=== PATIENT | male | born 1985 | race Caucasian/White ===

== ENCOUNTER 2018-04-04 22:00 | Emergency (ER) | payer MEDICAID ==
[2018-04-04] MEDS ORDERED: Aspirin 81 MG Tab.Chew PO ONE (22:26)
--- NOTE | 2018-04-04 22:28 | EDM.PDOC ---
ED HPI GENERAL MEDICAL PROBLEM - General Chief Complaint: Chest Pain Stated Complaint: CHEST PAIN Time Seen by Provider: 04/04/18 22:15 Source of Information: Reports: Patient, Alf Records - History of Present Illness INITIAL COMMENTS - FREE TEXT/NARRATIVE: 32-year-old male with onset of left anterior chest pain about 3 hours ago. He describes this as an ache without radiation that has not gone away. He is had occasional palpitations in the past where he feels some irregularity with his heart rate. He also has felt some of that this evening at the prolonged achiness is different from past experience. Not feel short of breath. He has not been coughing or ill with fever chills. He has history of borderline hypertension in the past, is not on medication for hypertension. He states he also was borderline diabetic. Does suffer from quite massive obesity. Left Chest Pain Score (Numeric/FACES): 5 - Related Data Allergies Allergy/AdvReac Type Severity Reaction Status Date / Time No Known Allergies Allergy Verified 04/04/18 22:16 Home Meds: Home Meds Ziprasidone HCl [Geodon] 04/04/18 [History] lamoTRIgine [Lamictal] 04/04/18 [History] metFORMIN HCl [Metformin HCl ER] 750 mg PO 04/04/18 [History] ED ROS GENERAL - Review of Systems Review Of Systems: See Below Constitutional: Denies: Fever, Chills, Diaphoresis HEENT: Reports: No Symptoms Respiratory: Denies: Shortness of Breath, Pleuritic Chest Pain, Cough Cardiovascular: Reports: Chest Pain, Dyspnea on Exertion GI/Abdominal: Denies: Abdominal Pain, Nausea, Vomiting Musculoskeletal: Denies: Neck Pain, Shoulder Pain, Arm Pain, Back Pain Skin: Reports: No Symptoms Neurological: Denies: Numbness, Tingling ED EXAM, GENERAL - Physical Exam Exam: See Below General Appearance: Alert, No Apparent Distress Eye Exam: Bilateral Eye: PERRL Throat/Mouth: Normal Inspection Head: Atraumatic Neck: Supple, Full Range of Motion Respiratory/Chest: No Respiratory Distress, Lungs Clear, Normal Breath Sounds Cardiovascular: Regular Rate, Rhythm GI/Abdominal: Soft, Non-Tender Back Exam: No: CVA Tenderness (L), CVA Tenderness (R) Extremities: Normal Inspection, Normal Range of Motion. No: Leg Pain Neurological: Alert, Oriented, No Motor/Sensory Deficits Skin Exam: Warm, Dry, Normal Color EKG INTERPRETATION EKG Date: 04/04/18 Rhythm: NSR [place]: Normal P-Wave: Present QRS: Other (Several PVCs noted) ST-T: Normal Course - Vital Signs Last Recorded V/S: Last Vital Signs Temp 98.1 F 04/04/18 22:11 Pulse 92 04/04/18 22:11 Resp 20 04/04/18 22:11 BP 163/91 H 04/04/18 22:11 Pulse Ox 97 04/04/18 22:11 - Orders/Labs/Meds Orders: Active Orders 24 hr Category Date Time Status EKG 12 Lead [EKG Documentation Completion] [RC] STAT Care 04/04/18 22:25 Active Chest 1V Frontal [CR] Stat Exams 04/04/18 22:25 Taken Labs: Laboratory Tests 04/04/18 04/04/18 Range/Units 22:25 22:25 WBC 14.12 H (4.23-9.07) K/mm3 RBC 4.90 (4.63-6.08) M/mm3 Hgb 14.0 (13.7-17.5) gm/L Hct 41.7 (40.1-51.0) % MCV 85.1 (79.0-92.2) fl MCH 28.6 (25.7-32.2) pg MCHC 33.6 (32.2-35.5) g/dl RDW Std Deviation 42.4 (35.1-43.9) fL Plt Count 406 H (163-337) K/mm3 MPV 9.2 L (9.4-12.3) fl Neut % (Auto) 60.4 (34.0-67.9) % Lymph % (Auto) 26.5 (21.8-53.1) % [place] % (Auto) 8.4 (5.3-12.2) % Eos % (Auto) 4.0 (0.8-7.0) Baso % (Auto) 0.1 (0.1-1.2) % Neut # (Auto) 8.52 H (1.78-5.38) K/mm3 Lymph # (Auto) 3.74 H (1.32-3.57) K/mm3 [place] # (Auto) 1.19 H (0.30-0.82) K/mm3 Eos # (Auto) 0.57 H (0.04-0.54) K/mm3 Baso # (Auto) 0.02 (0.01-0.08) K/mm3 Sodium 138 (136-145) mEq/L Potassium 3.9 (3.5-5.1) mEq/L Chloride 104 (98-107) mEq/L Carbon Dioxide 30 (21-32) mEq/L Anion Gap 7.9 (5-15) BUN 14 (7-18) mg/dL Creatinine 1.3 (0.7-1.3) mg/dL Est Cr Clr Drug Dosing 99.23 mL/min Estimated GFR (MDRD) > 60 (>60) mL/min BUN/Creatinine Ratio 10.8 L (14-18) Glucose 96 (74-106) mg/dL Calcium 9.0 (8.5-10.1) mg/dL Total Bilirubin 0.2 (0.2-1.0) mg/dL AST 24 (15-37) U/L ALT 53 (16-63) U/L Alkaline Phosphatase 103 (46-116) U/L Troponin I < 0.017 (0.00-0.056) ng/mL Total Protein 7.5 (6.4-8.2) g/dl Albumin 3.4 (3.4-5.0) g/dl Globulin 4.1 gm/dL Albumin/Globulin Ratio 0.8 L (1-2) Meds: Medications Discontinued Medications Generic Name Dose Route Start Last Admin Trade Name Freq PRN Reason Stop Dose Admin Aspirin 324 mg 04/04/18 22:26 04/04/18 22:58 Aspirin PO 04/04/18 22:27 324 mg ONETIME ONE Administration - Re-Assessments/Exams Free Text/Narrative Re-Assessment/Exam: 04/05/18 03:51 Troponin, other labs relatively normal chest x-ray looked fine, patient resting comfortably at time of reexam, discharge instructions as documented. Departure - Departure Time of Disposition: 00:27 Disposition: Home, Self-Care 01 Condition: Fair Clinical Impression: Atypical chest pain Instructions: Nonspecific Chest Pain Referrals: Rachel Messer NP [Primary Care Provider] - Forms: ED Department Discharge Additional Instructions: Try eat a good healthy diet, try begin a slow gradual exercise program as best you can, the [facility] has some good dietary guidelines and recommendations available for review, see her regular provider in the next 1-2 weeks for complete physical, asked to have your cholesterol checked at that time. Return to ED as needed if symptoms worsening in any way. - My Orders Last 24 Hours: My Active Orders 04/04/18 22:25 EKG 12 Lead [EKG Documentation Completion] [RC] STAT Chest 1V Frontal [CR] Stat - Assessment/Plan Last 24 Hours: My Active Orders 04/04/18 22:25 EKG 12 Lead [EKG Documentation Completion] [RC] STAT Chest 1V Frontal [CR] Stat
--- NOTE | 2018-04-06 11:43 | CR ---
Chest: Frontal view of the chest was obtained. Comparison: No prior chest x-ray. Size and mediastinum are normal. Lungs are clear. Bony structures are grossly intact. Impression: 1. Nothing acute is seen on frontal chest x-ray. Diagnostic code #1
== END 2018-04-05 00:45 | disposition home or self-care (01) ==
LOC: JD.ED 22:00
DX: R07.89 Other chest pain (principal); Z79.899 Other long term (current) drug therapy; Z79.84 Long term (current) use of oral hypoglycemic drugs
CPT/HCPCS: 36415; 71045; 80053; 84484; 85025; 93005; 99285; A9270; 93010; 99284-25

== ENCOUNTER 2019-06-16 14:16 | Emergency (ER) | payer MEDICAID ==
[2019-06-16] MEDS ORDERED: Lidocaine 1% with EPINEPHrine 1:100,000 20 ML MDV INJECT ONE (15:40)
--- NOTE | 2019-06-16 15:47 | EDM.PDOC ---
ED HPI GENERAL MEDICAL PROBLEM - General Chief Complaint: Laceration Stated Complaint: KNEE LAC Time Seen by Provider: 06/16/19 15:33 Source of Information: Reports: Patient History Limitations: Reports: No Limitations - History of Present Illness INITIAL COMMENTS - FREE TEXT/NARRATIVE: The patient presents with a left knee laceration. The patient was going into his house and he was stepping up onto his deck and slipped and his left leg went below him and he fell and landed on his left knee. He has a 2.5cm laceration to the left knee. He also has pain and swelling. He could walk on it but it does not feel right. His tetanus is up to date. Onset: Sudden Duration: Hour(s): Location: Reports: Lower Extremity, Left (knee) Quality: Reports: Sharp Severity: Moderate Improves with: Reports: Immobilization Worsens with: Reports: Movement Context: Reports: Trauma (Slipped and fell on he ice) Associated Symptoms: Reports: No Other Symptoms Left Knee Pain Score (Numeric/FACES): 5 - Related Data Allergies Allergy/AdvReac Type Severity Reaction Status Date / Time No Known Allergies Allergy Verified 03/03/19 02:48 Home Meds: Home Meds lamoTRIgine [Lamictal] 1 tab PO DAILY 04/04/18 [History] metFORMIN HCl [Metformin HCl ER] 500 mg PO DAILY 04/04/18 [History] traZODone HCl [Trazodone HCl] 100 mg PO BEDTIME 03/03/19 [History] Past Medical History HEENT History: Reports: Impaired Vision Cardiovascular History: Reports: High Cholesterol, Hypertension Respiratory History: Reports: Asthma Gastrointestinal History: Reports: None Genitourinary History: Reports: None Musculoskeletal History: Reports: None Neurological History: Reports: Concussion Psychiatric History: Reports: Bipolar, Other (See Below) (Insomnia) Endocrine/Metabolic History: Reports: Obesity/BMI 30+, Other (See Below) ( Prediabetes) Hematologic History: Reports: None Immunologic History: Reports: None Oncologic (Cancer) History: Reports: None Dermatologic History: Reports: None - Infectious Disease History Infectious Disease History: Reports: None - Past Surgical History HEENT Surgical History: Reports: Naso-Sinus Surgery (rhinoplasty), Oral Surgery (wisdom teeth extracted) Social & Family History - Family History Family Medical History: Noncontributory Psychiatric: Reports: Anxiety, Bipolar, Depression Oncologic: Reports: Leukemia - Caffeine Use Caffeine Use: Reports: None - Living Situation & Occupation Living situation: Reports: Single, with Family (Parents, niece, nephew) Occupation: Unemployed ED ROS GENERAL - Review of Systems Review Of Systems: See Below Constitutional: Reports: No Symptoms HEENT: Reports: No Symptoms Respiratory: Reports: No Symptoms Cardiovascular: Reports: No Symptoms Endocrine: Reports: No Symptoms GI/Abdominal: Reports: No Symptoms : Reports: No Symptoms Musculoskeletal: Reports: Other (Left knee pain with laceration) Skin: Reports: No Symptoms ED EXAM, SKIN/RASH Exam: See Below Exam Limited By: No Limitations General Appearance: Alert, No Apparent Distress Ears: Normal External Exam Nose: Normal Inspection Head: Atraumatic, Normocephalic Neck: Normal Inspection Respiratory/Chest: No Respiratory Distress Extremities: Other (2.5cm laceration over the patall. Edema and pain upon palpation. Good sensation and pulses distally.) ED SKIN PROCEDURES - Laceration/Wound Repair Left Knee Appearance: Subcutaneous, Linear Distal NVT: Neuro & Vascular Intact, No Tendon Injury Anesthetic Type: Local Local Anesthesia - Lidocaine (Xylocaine): 1% with EPI Skin Prep: Saline Exploration/Debridement/Repair: Wound Explored, In a Bloodless Field, Explored to Base Closed with: Sutures Lac/Wound length In cm: 2.5 Suture Size: 3-0 # of Sutures: 3 Suture Type: Nylon, Interrupted, Simple Tetanus Status Addressed: Yes Complications: No Course - Vital Signs Last Recorded V/S: Last Vital Signs Temp 98.6 F 06/16/19 14:37 Pulse 88 06/16/19 14:37 Resp 16 06/16/19 14:37 BP 152/98 H 06/16/19 14:37 Pulse Ox 93 L 06/16/19 14:37 - Orders/Labs/Meds Orders: Active Orders 24 hr Category Date Time Status Influenza Vaccine Charge [RC] .DISCHARGE Care 06/16/19 15:45 Active Knee wo Cont Lt [CT] Stat Exams 06/16/19 16:32 Taken Meds: Medications Discontinued Medications Generic Name Dose Route Start Last Admin Trade Name Freq PRN Reason Stop Dose Admin Influenza Virus Vaccine 60 mcg 06/16/19 16:00 06/16/19 15:57 Fluzone Quad Syringe IM 06/16/19 16:01 60 mcg .ONCE ONE Administration Lidocaine/Epinephrine 20 ml 06/16/19 15:40 06/16/19 15:58 Xylocaine 1% With Epinephrine 1:100,000 INJECT 06/16/19 15:41 20 ml ONETIME ONE Administration - Re-Assessments/Exams Free Text/Narrative Re-Assessment/Exam: 06/16/19 15:46 I have ordered an x-ray and I will suture the laceration. 06/16/19 16:26 I thought there could be a lucent line in the lateral tibia in 1 view. I talked to Dr Sims and he said there may be a fracture. I ordered a CT and it did not show a fracture. I will discharge him home. Departure - Departure Time of Disposition: 16:30 Disposition: Home, Self-Care 01 Condition: Good Clinical Impression: Fall Qualifiers: Encounter type: initial encounter Qualified Code(s): W19.XXXA - Unspecified fall, initial encounter Laceration of left knee Qualifiers: Encounter type: initial encounter Qualified Code(s): S81.012A - Laceration without foreign body, left knee, initial encounter - Discharge Information *PRESCRIPTION DRUG MONITORING PROGRAM REVIEWED*: No *COPY OF PRESCRIPTION DRUG MONITORING REPORT IN PATIENT DILAN: No Referrals: Rachel Messer, KASEY [Primary Care Provider] - Forms: ED Department Discharge Additional Instructions: Clean the laceration with warm soapy water 2 times per day and apply antibiotics after. Have the sutures removed in a week. Look for any signs of infection such as redness, swelling, pain or discharge. If you see any of these signs please return. You may need oral antibiotics. - My Orders Last 24 Hours: My Active Orders 06/16/19 15:45 Influenza Vaccine Charge [RC] .DISCHARGE 06/16/19 16:32 Knee wo Cont Lt [CT] Stat - Assessment/Plan Last 24 Hours: My Active Orders 06/16/19 15:45 Influenza Vaccine Charge [RC] .DISCHARGE 06/16/19 16:32 Knee wo Cont Lt [CT] Stat
[2019-06-16] MEDS ORDERED: FLU Vacc QS2019-20(6MOS+)/PF 60 MCG/0.5 ML SYRINGE IM ONE (16:00)
--- NOTE | 2019-06-16 17:10 | CR ---
Left knee: 4 views of the left knee were obtained. Comparison: No previous knee exam. Minimal medial joint space narrowing is seen. Lateral joint space is preserved. No joint effusion is seen. On one view there is a lucent line within the lateral tibial plateau possibly due to nondisplaced fracture. No additional abnormality is seen. Impression: 1. Slight medial joint space narrowing within the left knee. 2. Possible nondisplaced lateral tibial plateau fracture as noted above. Either follow-up study in 10-14 days would confirm or if more immediate confirmation is needed, CT would be helpful. Diagnostic code #3 This report was dictated in [place] Standard Time
--- NOTE | 2019-06-19 13:10 | CT ---
CT left knee Technique: Multiple axial sections were obtained through the left knee. Reconstructed coronal and sagittal images were obtained. Comparison: Previous left knee radiographic study performed earlier on the same day (3:40 PM). Findings: Mild medial joint space narrowing is seen. No fracture or other bony abnormality is appreciated. No joint effusion is seen. Impression: 1. Slight medial joint space narrowing. 2. Nothing acute is seen on left knee exam. Previously suggested nondisplaced fracture within the lateral tibial plateau is not confirmed as a real finding on this study. Diagnostic code #2 This report was dictated in [place] Standard Time MTDD
== END 2019-06-16 19:28 | disposition home or self-care (01) ==
LOC: JD.ED 14:16
DX: S81.012A Laceration without foreign body, left knee, initial encounter (principal); F31.9 Bipolar disorder, unspecified; I10 Essential (primary) hypertension; J45.909 Unspecified asthma, uncomplicated; E66.9 Obesity, unspecified; Z68.43 Body mass index [BMI] 50.0-59.9, adult; Z23 Encounter for immunization; Z79.899 Other long term (current) drug therapy; W00.0XXA Fall on same level due to ice and snow, initial encounter; Y92.009 Unspecified place in unspecified non-institutional (private) residence as the place of occurrence of the external cause; Y93.89 Activity, other specified
CPT/HCPCS: 12001; 73564-26-LT; 73564-LT; 73700-26-LT; 73700-LT; 90686; 99282; 99283-25; G0008

== ENCOUNTER 2019-08-21 18:08 | Emergency (ER) | payer MEDICAID ==
--- NOTE | 2019-08-21 19:57 | EDM.PDOC ---
ED HPI GENERAL MEDICAL PROBLEM - General Chief Complaint: Cardiovascular Problem Stated Complaint: HEART PALPITATIONS Time Seen by Provider: 08/21/19 19:27 Source of Information: Reports: Patient, RN Notes Reviewed History Limitations: Reports: No Limitations - History of Present Illness INITIAL COMMENTS - FREE TEXT/NARRATIVE: Patient is a 34-year-old male who presents to the ED for the evaluation of heart palpitations. Patient has been aware of these for the last 3 days, he states that over the course of the day they have been worsening. He states he is to feel like his heart is skipping a beat, he is not said that it seems like it is beating fast. He try to go the walk-in clinic for evaluation but they sent him here. He notes that he has been here for multiple other issues, and thought maybe it could be related to this. Patient is morbidly obese, does have blood pressure issues and diabetic issues. He states that he is having some dizziness, that is only present when he is having these palpitation type symptoms, he states that these come and go, there are no real modifiers that seem to make it worse. Patient notes that he drinks 2 vanilla Cokes daily for caffeine intake, and believes that he is well-hydrated otherwise. He denies any other bad habits like smoking drinking or drugs. He denies any family history of any early heart issues like MIs that he is ever been told. Patient is being evaluated for a sleep study, next month. - Related Data Allergies Allergy/AdvReac Type Severity Reaction Status Date / Time No Known Allergies Allergy Verified 08/21/19 18:21 Home Meds: Home Meds lamoTRIgine [Lamictal] 1 tab PO DAILY 04/04/18 [History] metFORMIN HCl [Metformin HCl ER] 500 mg PO DAILY 04/04/18 [History] traZODone HCl [Trazodone HCl] 100 mg PO BEDTIME 03/03/19 [History] Cholecalciferol (Vitamin D3) [Vitamin D] 4,000 unit PO DAILY 08/21/19 [History] Cyanocobalamin (Vitamin B12) [Vitamin B12] 1,000 mcg PO DAILY 08/21/19 [History] Past Medical History HEENT History: Reports: Impaired Vision Cardiovascular History: Reports: High Cholesterol, Hypertension Respiratory History: Reports: Asthma Neurological History: Reports: Concussion 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 Psychiatric History: Reports: Bipolar Endocrine/Metabolic History: Reports: Diabetes, Type II, Obesity/BMI 30+ Other Endocrine/Metabolic History: Metformin for prediabetes, for A1C levels - Past Surgical History HEENT Surgical History: Reports: Naso-Sinus Surgery, Oral Surgery Social & Family History - Family History Family Medical History: Noncontributory Psychiatric: Reports: Anxiety, Bipolar, Depression Oncologic: Reports: Leukemia - Tobacco Use Smoking Status *Q: Never Smoker - Caffeine Use Caffeine Use: Reports: Soda Caffeine Use Comment: 2-4 cokes per day - Recreational Drug Use Recreational Drug Use: No - Living Situation & Occupation Living situation: Reports: Single, with Family (Parents, niece, nephew) Occupation: Unemployed ED ROS GENERAL - Review of Systems Review Of Systems: See Below Constitutional: Denies: Fever, Chills Respiratory: Denies: Shortness of Breath, Cough Cardiovascular: Reports: Palpitations (feels like his heart skips a beat). Denies: Chest Pain GI/Abdominal: Denies: Abdominal Pain, Diarrhea, Nausea, Vomiting : Denies: Dysuria, Flank Pain, Frequency, Urgency ED EXAM, GENERAL - Physical Exam Exam: See Below Exam Limited By: No Limitations General Appearance: Alert, WD/WN, No Apparent Distress, Obese (morbidly obese) Eye Exam: Bilateral Eye: EOMI, Normal Inspection, PERRL Nose: Normal Inspection Throat/Mouth: Normal Inspection, Normal Lips, Normal Teeth, Normal Gums, Normal Oropharynx, Normal Voice, No Airway Compromise Head: Atraumatic, Normocephalic Neck: Normal Inspection Respiratory/Chest: No Respiratory Distress, Lungs Clear, Normal Breath Sounds, No Accessory Muscle Use, Chest Non-Tender Cardiovascular: Normal Peripheral Pulses, Regular Rate, Rhythm, No Murmur Peripheral Pulses: 3+: Radial (L), Radial (R) GI/Abdominal: Normal Bowel Sounds, Soft, Non-Tender, No Distention, No Mass Extremities: Normal Inspection, Normal Capillary Refill Neurological: Alert, Oriented, Normal Cognition, No Motor/Sensory Deficits Psychiatric: Normal Affect, Normal Mood Skin Exam: Warm, Dry, Intact, Normal Color, No Rash EKG INTERPRETATION EKG Date: 08/21/19 Time: 19:41 Rhythm: Other (sinus arrhythmia) Rate (Beats/Min): 77 [place]: LAD-Left [place] Deviation (borderline) P-Wave: Present QRS: Normal ST-T: Normal QT: Normal Comparison: NA - No Prior EKG EKG Interpretation Comments: No acute ischemic change, reviewed by myself and Dr. Gómez. Course - Vital Signs Last Recorded V/S: Last Vital Signs Temp 98.2 F 08/21/19 18:17 Pulse 92 08/21/19 18:17 Resp 18 08/21/19 18:17 BP 152/114 H 08/21/19 18:17 Pulse Ox 95 08/21/19 18:17 - Orders/Labs/Meds Orders: Active Orders 24 hr Category Date Time Status EKG 12 Lead [EKG Documentation Completion] [RC] STAT Care 08/21/19 18:51 Active Labs: Laboratory Tests 08/21/19 08/21/19 Range/Units 20:13 20:13 WBC 11.50 H (4.23-9.07) K/mm3 RBC 5.01 (4.63-6.08) M/mm3 Hgb 14.3 (13.7-17.5) gm/dl Hct 44.0 (40.1-51.0) % MCV 87.8 (79.0-92.2) fl MCH 28.5 (25.7-32.2) pg MCHC 32.5 (32.2-35.5) g/dl RDW Std Deviation 43.3 (35.1-43.9) fL Plt Count 393 H (163-337) K/mm3 MPV 9.4 (9.4-12.3) fl Neut % (Auto) 61.8 (34.0-67.9) % Lymph % (Auto) 25.9 (21.8-53.1) % [place] % (Auto) 7.2 (5.3-12.2) % Eos % (Auto) 4.6 (0.8-7.0) Baso % (Auto) 0.2 (0.1-1.2) % Neut # (Auto) 7.10 H (1.78-5.38) K/mm3 Lymph # (Auto) 2.98 (1.32-3.57) K/mm3 [place] # (Auto) 0.83 H (0.30-0.82) K/mm3 Eos # (Auto) 0.53 (0.04-0.54) K/mm3 Baso # (Auto) 0.02 (0.01-0.08) K/mm3 Manual Slide Review Normal smear Sodium 138 (136-145) mEq/L Potassium 4.1 (3.5-5.1) mEq/L Chloride 103 (98-107) mEq/L Carbon Dioxide 30 (21-32) mEq/L Anion Gap 9.1 (5-15) BUN 14 (7-18) mg/dL Creatinine 1.2 (0.7-1.3) mg/dL Est Cr Clr Drug Dosing 105.49 mL/min Estimated GFR (MDRD) > 60 (>60) mL/min BUN/Creatinine Ratio 11.7 L (14-18) Glucose 105 (74-106) mg/dL Calcium 9.4 (8.5-10.1) mg/dL Total Bilirubin 0.2 (0.2-1.0) mg/dL AST 18 (15-37) U/L ALT 39 (16-63) U/L Alkaline Phosphatase 95 (46-116) U/L Troponin I < 0.017 (0.00-0.056) ng/mL Total Protein 7.4 (6.4-8.2) g/dl Albumin 3.5 (3.4-5.0) g/dl Globulin 3.9 gm/dL Albumin/Globulin Ratio 0.9 L (1-2) TSH 3rd Generation 3.441 (0.358-3.74) uIU/mL - Re-Assessments/Exams Free Text/Narrative Re-Assessment/Exam: 08/21/19 19:58 Patient presents to the ED for evaluation of palpitations. Patient's EKG was done, and demonstrates no obvious sign of any ischemia, but due to his morbid obesity. I will check some labs to include a CBC, CMP, and a troponin with a TSH for further evaluation. 08/21/19 21:15 Patient's laboratory evaluation is back, demonstrates no obvious abnormalities. Patient will be sent home with a 48-hour Holter monitor for further evaluation of his feelings of palpitations and have him follow-up with his regular provider about a week or [address] for results[address] Departure - Departure Time of Disposition: 21:17 Disposition: Home, Self-Care 01 Condition: Fair Clinical Impression: Palpitations with regular cardiac rhythm Instructions: Palpitations, [id number] Referrals: Rachel Messer NP [Primary Care Provider] - Forms: ED Department Discharge Additional Instructions: You were evaluated in the ER today regarding the feelings of your heart skipping a beat. Your laboratory evaluation demonstrated no metabolic abnormalities, or abnormalities otherwise that would warrant any other emergent situation that required attention at today's visit. Your EKG demonstrated no sign of an acute ischemia, that would be suggestive of any sort of heart attack at this visit. It did show some sinus arrhythmia, which is a normal abnormal finding. Nonetheless you were sent home with a 48- hour Holter monitor for further evaluation of feelings of your heart skipping a beat. Please wear as directed, and follow-up with your primary care provider about a week after the machine has been returned, so that you may get the results of your heart monitor, for possible cardiac evaluation if warranted. Please try to keep yourself well-hydrated during this time. Please return to the ER at any time if your symptoms change or worsen. Sepsis Event Note - Evaluation Sepsis Screening Result: No Definite Risk - Focused Exam Vital Signs: Vital Signs Temp Pulse Resp BP Pulse Ox 08/21/19 18:17 98.2 F 92 18 152/114 H 95 Date Exam was Performed: 08/21/19 Time Exam was Performed: 21:15 - My Orders Last 24 Hours: My Active Orders 08/21/19 18:51 EKG 12 Lead [EKG Documentation Completion] [RC] STAT - Assessment/Plan Last 24 Hours: My Active Orders 08/21/19 18:51 EKG 12 Lead [EKG Documentation Completion] [RC] STAT
== END 2019-08-21 21:34 | disposition home or self-care (01) ==
LOC: JD.ED 18:08
DX: R00.2 Palpitations (principal); I10 Essential (primary) hypertension; E11.9 Type 2 diabetes mellitus without complications; E66.01 Morbid (severe) obesity due to excess calories; Z68.43 Body mass index [BMI] 50.0-59.9, adult; Z79.84 Long term (current) use of oral hypoglycemic drugs
CPT/HCPCS: 36415; 80053; 84443; 84484; 85025; 93005; 93010; 93225; 93226; 99283; 99285-25